=== PATIENT | female | born 1995 | race Caucasian/White ===

== ENCOUNTER 2020-08-30 01:09 | Emergency (ER) | payer BC, OTHER ==
[~2020-08-30] VITALS: Ht 162.6 cm; Wt 61.7 kg
[~2020-08-30 01:09] MED LIST: IBUP800 PO; MULVITMINE PO
[2020-08-30 02:11] LABS: BASOPHILS ABSOLUTE AUTO 0.03 K/mm3 (0.00-0.23); BASOPHILS PERCENT AUTO 0 % (0-2); EOSINOPHILS ABSOLUTE AUTO 0.08 K/mm3 (0.00-0.68); EOSINOPHILS PERCENT AUTO 1 % (0-6); Hematocrit 45.2 % (33.0-51.0); Hemoglobin 14.2 g/dL (11.5-16.0); IMMATURE GRAN ABSOLUTE AUTO 0.02 K/mm3 (0.00-0.10); IMMATURE GRAN PERCENT AUTO 0 % (0-1); LYMPHOCYTES ABSOLUTE AUTO 3.47 K/mm3 (0.84-5.20); LYMPHOCYTES PERCENT AUTO 44 % (21-46); MONOCYTES ABSOLUTE AUTO 0.51 K/mm3 (0.16-1.47); MONOCYTES PERCENT AUTO 6 % (4-13); Mean Corpuscular HGB 25.9 pg (26.0-34.0); Mean Corpuscular HGB Conc 31.4 g/dL (31.5-36.5); Mean Corpuscular Volume 83 fL (80-100); Mean Platelet Volume 10.4 fL (9.1-12.4); NEUTROPHILS ABSOLUTE AUTO 3.83 K/mm3 (1.96-9.15); NEUTROPHILS PERCENT AUTO 48 % (41-73); Platelet Count 277 K/mm3 (150-400); RDW Standard Deviation 45.3 fL (35.1-46.3); Red Blood Cell Count 5.48 M/mm3 (3.80-5.20); White Blood Cell Count 7.94 K/mm3 (4.00-11.30)
[2020-08-30] MEDS ORDERED: ESCI10 PO (02:12)
[2020-08-30 02:20] LABS: Alanine Aminotransfer (ALT/SGP 34 U/L (12-78); Albumin, Blood 4.2 g/dL (3.4-5.0); Albumin/Globulin Ratio 1.2 (0.8-1.8); Alk Phos 70 U/L (50-136); Anion Gap 6 mmol/L (6-16); Aspartate Aminotrans (AST/SGOT 24 U/L (12-37); Bilirubin, Total 0.4 mg/dL (0.1-1.0); Blood Urea Nitrogen 15 mg/dL (8-24); Bun/Creatinine Ratio 14.6 (12.0-20.0); CO2, Blood 26 mmol/L (21-32); Calcium, Blood 9.1 mg/dL (8.5-10.1); Chloride, Blood 108 mmol/L (98-108); Creatinine, Blood 1.03 mg/dL (0.40-1.00); Globulin, Blood 3.4 g/dL (2.2-4.0); Glomerular Filtration Rate >60 (60-); Glucose, Blood 108 mg/dL (70-99); Potassium, Blood 3.4 mmol/L (3.5-5.5); Sodium, Blood 140 mmol/L (136-145); Total Protein, Blood 7.6 g/dL (6.4-8.2)
== END 2020-08-30 05:46 | disposition home or self-care (01) ==
LOC: ER 01:09
PROVIDERS: Emergency Medicine
DX: R40.4 Transient alteration of awareness (principal); R51.9 Headache, unspecified; R20.2 Paresthesia of skin; R53.1 Weakness; Z79.899 Other long term (current) drug therapy
CPT/HCPCS: 36415; 70450; 80053; 82947; 85025; 93005; 93010; 96374; 96375; 99285-25; A9270-GY; J1200; J1885; J2405; J2765

== ENCOUNTER → 2021-10-04 | Outpatient (CLI) | payer BC, OTHER ==
[~2021-10-04] MED LIST changes: +ESCI10 PO
[2021-10-05 07:11] LABS: A/G RATIO 2.2 (1.2-2.2); BASOS 1 % (Not Estab.); BILIRUBIN, TOTAL 0.5 mg/dL (0.0-1.2); CALCIUM, SERUM 9.6 mg/dL (8.7-10.2); CREATININE, SERUM 0.7 mg/dL (0.57-1.00); EOS 2 % (Not Estab.); EOS (ABSOLUTE) 0.1 x10E3/uL (0.0-0.4); GLOBULIN, TOTAL 2.2 g/dL (1.5-4.5); HEMATOCRIT 40.7 % (34.0-46.6); HEMOGLOBIN 13.4 g/dL (11.1-15.9); IMMATURE GRANULOCYTES 0 % (Not Estab.); LYMPHS 32 % (Not Estab.); LYMPHS (ABSOLUTE) 2.2 x10E3/uL (0.7-3.1); MCH 27.2 pg (26.6-33.0); MCHC 32.9 g/dL (31.5-35.7); MCV 83 fL (79-97); MONOCYTES 7 % (Not Estab.); MONOCYTES(ABSOLUTE) 0.5 x10E3/uL (0.1-0.9); NEUTROPHILS 58 % (Not Estab.); PLATELETS 376 x10E3/uL (150-450); POTASSIUM, SERUM 4.7 mmol/L (3.5-5.2); PROTEIN, TOTAL, SERUM 7.1 g/dL (6.0-8.5); RBC 4.93 x10E6/uL (3.77-5.28); RDW 12.5 % (11.7-15.4); TSH 1.76 uIU/mL (0.450-4.500); WBC 6.8 x10E3/uL (3.4-10.8)
== END | disposition home or self-care (01) ==
LOC: LAB SHORT 10:15
PROVIDERS: Nurse Practitioner Family
DX: F41.9 Anxiety disorder, unspecified (principal)
CPT/HCPCS: 80053; 84443; 85025

== ENCOUNTER 2024-01-04 13:56 | Inpatient (IN) | payer BC ==
[~2024-01-04] VITALS: Ht 162.6 cm; Wt 73.6 kg
[2024-01-04] VITALS (32 sets, daily range): BP systolic 102–141; BP diastolic 57–83
[2024-01-04] MEDS ORDERED: Misoprostol 200 MCG Tab PR SCH (16:10)
[2024-01-04] MEDS ORDERED: Bupivacaine 0.5% HCl 5 MG/ML 30MLVIAL XX SCH (16:10)
[2024-01-04] MEDS ORDERED: Lactated Ringer's 1,000 ML IV PRN (16:10)
[2024-01-04] MEDS ORDERED: LR Oxytocin 20 Units 1,000 ML IV SCH ×2 (16:10→21:40)
[2024-01-04] MEDS ORDERED: Lactated Ringer's 1,000 ML IV SCH ×3 (16:10→21:40)
[2024-01-04] MEDS ORDERED: FentaNYL 2mcg/ml-Bup 0.1% Epd 250 ML EPI PRN (16:10)
[2024-01-04] MEDS ORDERED: Bupivacaine HCl 2.5 MG/ML 10ML P/F Injection XX SCH (16:10)
[2024-01-04] MEDS ORDERED: Lidocaine HCl 1% 30 ML SDV XX SCH (16:10)
[2024-01-04] MEDS ORDERED: Castor Oil 59.146 ML BTL TOP SCH (16:10)
[2024-01-04] MEDS ORDERED: Oxytocin 10 Unit / ML Vial IM SCH (16:10)
[2024-01-04] MEDS ORDERED: Methylergonovine Maleate 0.2MG / ML 1ML Amp IM SCH (16:10)
[2024-01-04] MEDS ORDERED: ePHEDrine Sulfate 50 MG/ML 1ML Injection XX PRN (16:10)
[2024-01-04] MEDS ORDERED: FentaNYL Citrate 50 MCG/ML 2 ML Injection IV PRN (16:15)
[2024-01-04 16:30] LABS: BASOPHILS ABSOLUTE AUTO 0.04 K/mm3 (0.00-0.23); BASOPHILS PERCENT AUTO 0 % (0-2); EOSINOPHILS ABSOLUTE AUTO 0.03 K/mm3 (0.00-0.68); EOSINOPHILS PERCENT AUTO 0 % (0-6); Hematocrit 37.7 % (33.0-51.0); Hemoglobin 12.7 g/dL (11.5-16.0); IMMATURE GRAN ABSOLUTE AUTO 0.22 K/mm3 (0.00-0.10); IMMATURE GRAN PERCENT AUTO 2 % (0-1); LYMPHOCYTES ABSOLUTE AUTO 1.86 K/mm3 (0.84-5.20); LYMPHOCYTES PERCENT AUTO 13 % (21-46); MONOCYTES ABSOLUTE AUTO 0.78 K/mm3 (0.16-1.47); MONOCYTES PERCENT AUTO 5 % (4-13); Mean Corpuscular HGB 28.2 pg (26.0-34.0); Mean Corpuscular HGB Conc 33.7 g/dL (31.5-36.5); Mean Corpuscular Volume 84 fL (80-100); Mean Platelet Volume 10.8 fL (9.1-12.4); NEUTROPHILS PERCENT AUTO 80 % (41-73); Platelet Count 251 K/mm3 (150-400); RDW Coefficient Variation 13.2 % (11.7-14.2); RDW Standard Deviation 40.2 fL (35.1-46.3); Red Blood Cell Count 4.51 M/mm3 (3.80-5.20); White Blood Cell Count 14.73 K/mm3 (4.00-11.30)
[2024-01-04] MEDS ORDERED: Metoclopramide HCl 5MG / ML 2ML Vial IV PRN (19:10)
[2024-01-04] MEDS ORDERED: ePHEDrine Sulfate 50 MG/ML 1ML Injection IV PRN (19:10)
[2024-01-04] MEDS ORDERED: Ondansetron HCl 2 MG / ML 2ML Vial IV PRN (19:10)
[2024-01-04] MEDS ORDERED: Naloxone HCl 0.4MG / ML 1ML Vial IV PRN (19:10)
[2024-01-04] MEDS ORDERED: DiphenhydrAMINE HCl 50 MG/ML 1ML Vial IV PRN (19:10)
[2024-01-04] MEDS ORDERED: Diphth,Pertuss(Acell),Tet Vac 0.5 ML VIAL IM ONE (21:30)
[2024-01-04] MEDS ORDERED: OxyCODONE 5 mg/Acetamin 325 mg TABLET PO PRN (21:30)
[2024-01-04] MEDS ORDERED: Docusate Sodium 100 MG Cap PO PRN (21:30)
[2024-01-04] MEDS ORDERED: Rho(D) Immune Globulin 300 MCG / SYR IM ONE (21:30)
[2024-01-04] MEDS ORDERED: Benzocaine Topical Anesthetic Spray 60GM TOP PRN (21:30)
[2024-01-04] MEDS ORDERED: Acetaminophen 325 MG TABLET PO PRN (21:35)
[2024-01-04] MEDS ORDERED: Lanolin Cream TOP PRN (21:35)
[2024-01-04] MEDS ORDERED: Witch Hazel/Glycerin PADS TOP PRN (21:35)
[2024-01-04] MEDS ORDERED: Misoprostol 200 MCG Tab PO PRN (21:35)
[2024-01-04] MEDS ORDERED: Methylergonovine Maleate 0.2MG / ML 1ML Amp IM PRN (21:35)
[2024-01-04] MEDS ORDERED: Measles/Mumps/Rubella Vaccine 0.5 ML Vial SC ONE (21:35)
[2024-01-04] MEDS ORDERED: Ketorolac Tromethamine 30mg Vial IV ONE ×2 (22:00)
[2024-01-04] MEDS ORDERED: Ketorolac Tromethamine 30mg Vial IV PRN ×2 (22:00)
[2024-01-05] VITALS (7 sets, daily range): BP systolic 106–123; BP diastolic 56–73
[2024-01-05] MEDS ORDERED: Rho(D) Immune Globulin 300 MCG / SYR IM ONE (01:05)
[2024-01-05] MEDS ORDERED: Diphth,Pertuss(Acell),Tet Vac 0.5 ML VIAL IM ONE (02:25)
[2024-01-05] MEDS ORDERED: Prenatal Vit/FE Fumarate/FA 1 Tab PO SCH (09:00)
[2024-01-05 10:29] LABS: Hematocrit 34.1 % (33.0-51.0); Hemoglobin 11.5 g/dL (11.5-16.0); Mean Corpuscular HGB 28.3 pg (26.0-34.0); Mean Corpuscular HGB Conc 33.7 g/dL (31.5-36.5); Mean Corpuscular Volume 84 fL (80-100); Mean Platelet Volume 10.5 fL (9.1-12.4); Platelet Count 244 K/mm3 (150-400); RDW Coefficient Variation 12.9 % (11.7-14.2); RDW Standard Deviation 38.8 fL (35.1-46.3); Red Blood Cell Count 4.07 M/mm3 (3.80-5.20); White Blood Cell Count 14.46 K/mm3 (4.00-11.30)
[2024-01-05] MEDS ORDERED: IBUP800 (13:17)
[2024-01-05] MEDS ORDERED: FLU VACC QS2023-24(6MOS UP)/PF 60 MCG/0.5 ML SYRINGE IM ONE (16:35)
--- NOTE | 2024-01-05 20:58 | NUR ---
DECLINES MMR AND TDAP VACCINES AT THIS TIME. WOULD PREFER TO HAVE ADMINISTERED IN OFFICE AT CHECK.
[2024-01-05] MEDS ORDERED: Measles/Mumps/Rubella Vaccine 0.5 ML Vial SC SCH (21:00)
--- NOTE | 2024-01-05 22:12 | NUR ---
PATIENT DISCHARGED HOME IN FAMILY VEHICLE. D/C TEACHING COMPLETED. BANDS MATCHED WITH BABY. PATERNITY PAPERS SIGNED WITH THIS RN IN ROOM. VS WNL. NO CONCERNS.
== END 2024-01-05 22:15 | disposition home or self-care (01) | DRG 807 ==
LOC: BC 13:56 → OBS 13:56 → BC 14:00 → OBS 16:11 → BC 19:29
PROVIDERS: ADMIT Advanced Practice Midwife
PROC: 10E0XZZ Delivery of Products of Conception, External Approach (ICD-10-PCS; principal; 2024-01-04)
PROC: 3E0R3BZ Introduction of Anesthetic Agent into Spinal Canal, Percutaneous Approach (ICD-10-PCS; 2024-01-04)
PROC: 00HU33Z Insertion of Infusion Device into Spinal Canal, Percutaneous Approach (ICD-10-PCS; 2024-01-04)
DX: O24.420 Gestational diabetes mellitus in childbirth, diet controlled (principal); Z37.0 Single live birth; Z3A.38 38 weeks gestation of pregnancy; O77.0 Labor and delivery complicated by meconium in amniotic fluid; O69.81X0 Labor and delivery complicated by cord around neck, without compression, not applicable or unspecified; O24.439 Gestational diabetes mellitus in the puerperium, unspecified control; Z98.890 Other specified postprocedural states; O99.344 Other mental disorders complicating childbirth; F41.9 Anxiety disorder, unspecified; Z79.899 Other long term (current) drug therapy
CPT/HCPCS: 36415; 51702; 82947; 85025; 85027; 85460; 86850; 86870; 86900; 86901; 86922; A9270; J1885; J2590; J2791; J3010; J7120

== ENCOUNTER 2024-06-26 07:38 | Day surgery (SDC) | payer BC ==
[~2024-06-26] VITALS: Ht 160 cm; Wt 72.7 kg
[~2024-06-26 07:38] MED LIST changes: +IBUP800; +Lactated Ringer's 1,000 ML IV ONE; +Ropivacaine 0.5% HCL/PF 5 MG/ML 30ML Vial ONE
[2024-06-26] MEDS ORDERED: Dexamethasone Sod Phos 10 MG/ML 1ML VIAL ONE (07:42)
[2024-06-26] MEDS ORDERED: Ketorolac Tromethamine 30mg Vial ONE (07:42)
[2024-06-26] MEDS ORDERED: FentaNYL Citrate 50 MCG/ML 2 ML Injection ONE (07:42)
[2024-06-26] MEDS ORDERED: propofoL 20 ML IV ONE (07:42)
[2024-06-26] MEDS ORDERED: Ondansetron HCl 2 MG / ML 2ML Vial ONE (07:42)
[2024-06-26] MEDS ORDERED: ESTARYLLA 0.251 EACH PO (08:12)
[2024-06-26] MEDS ORDERED: Buspirone HCl15 MG PO (08:13)
[2024-06-26] MEDS ORDERED: BUPR75 PO (08:14)
[2024-06-26] MEDS ORDERED: AMPDEX10 (08:14)
[2024-06-26] MEDS ORDERED: MULTIVITAMIN (08:16)
[2024-06-26] MEDS ORDERED: VITAMIN D5000 UNIT PO (08:17)
[2024-06-26] MEDS ORDERED: CeFAZolin Sodium 2,000 MG VIAL ONE (08:17)
[2024-06-26] MEDS ORDERED: NS 50 ML IV ONE (08:18)
[2024-06-26] MEDS ORDERED: Lactated Ringer's 1,000 ML IV ONE (08:26)
[2024-06-26] MEDS ORDERED: EPINEPhrine HCl 1 MG/ML 1ML Amp XX ONE (09:10)
--- NOTE | 2024-06-26 09:13 | NUR ---
06/26/24 0913 Darcie Randall 30ML OF ROPIVACAINE 0.5% MIXED AND VERIFIED WITH 0.15MG OF EPI (1MG/ML) TO MAKE ROPIVACAINE 0.5% WITH EPI 1:200,000. STRAIGHT CATHETER DONE AFTER STERILE PREP. APPROXIMATELY 50ML OF CLEAR YELLOW URINE.
[2024-06-26 09:47] VITALS: BP 126/78
--- NOTE | 2024-06-26 10:10 | NUR ---
06/26/24 Joanna Nolan 0853: NOTIFIED [facility] THAT PATIENT TOOK IBUPROFEN ABOUT 2 DAYS AGO, PER [facility]ON[facility] OK TO PROCEED
== END 2024-06-26 10:30 | disposition home or self-care (01) ==
LOC: ORSCSDS 07:38
PROVIDERS: Obstetrics & Gynecology
PROC: 0UBC7ZX Excision of Cervix, Via Natural or Artificial Opening, Diagnostic (ICD-10-PCS; principal; 2024-06-26 09:00)
DX: D06.0 Carcinoma in situ of endocervix (principal); F41.9 Anxiety disorder, unspecified; Z79.899 Other long term (current) drug therapy
CPT/HCPCS: 88305; J0171; J0690; J1100; J1885; J2405; J2704; J2795; J3010; J7120